=== PATIENT | male | born 1975 | race Caucasian/White ===

== ENCOUNTER → 2017-11-19 | Outpatient (CLI) | payer BC, OTHER ==
[~2017-11-19] MED LIST: LRT10T PO; PNT40TEC PO
--- NOTE | 2017-11-19 09:00 | Diagnostic Imaging Report ---
INDICATION: Right upper quadrant pain, tightness with difficulty eating. TECHNIQUE: Multiple grayscale sonographic images were obtained of the right upper quadrant of the abdomen. CORRELATION STUDY: 11/01/2012. FINDINGS: LIVER: There is uniform echotexture within the visualized portions of the liver. Liver length 14 cm. GALLBLADDER: The gallbladder demonstrates no definitive shadowing gallstones. No abnormal gallbladder wall thickening or pericholecystic fluid. COMMON BILE DUCT: Obscured by overlying bowel gas. No overt intrahepatic bile duct dilatation. PANCREAS: Obscured by overlying bowel gas. RIGHT KIDNEY: Measures 9.7 cm. No hydronephrosis. OTHER: None. IMPRESSION: 1. Limited right upper quadrant ultrasound evaluation. No definitive gallstones. The common bile duct is largely obscured as is the pancreas. Dictated by: Dictated on workstation # [id number]
== END ==
LOC: RAD 07:02
DX: R10.11 Right upper quadrant pain (principal)
CPT/HCPCS: 76705

== ENCOUNTER → 2017-11-22 | Outpatient (CLI) | payer OTHER ==
--- NOTE | 2017-11-22 15:48 | Diagnostic Imaging Report ---
INDICATION: Right-sided abdominal pain. TECHNIQUE: KUB obtained at 3:58 p.m. FINDINGS: The abdominal bowel gas pattern is unremarkable. There is no sign of obstruction or ileus. There are no suspicious calcifications. IMPRESSION: Unremarkable abdominal film. Dictated by: Dictated on workstation # [id number]
== END ==
LOC: RAD 15:20
PROVIDERS: ATTEND Nurse Practitioner Family
DX: R10.9 Unspecified abdominal pain (principal)
CPT/HCPCS: 74018

== ENCOUNTER → 2019-09-22 | Outpatient (CLI) | payer OTHER ==
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
== END ==
LOC: RAD 10:10
PROVIDERS: ATTEND Nurse Practitioner Family
DX: M54.6 Pain in thoracic spine (principal); R07.81 Pleurodynia; M54.5 Low back pain; V89.2XXA Person injured in unspecified motor-vehicle accident, traffic, initial encounter
CPT/HCPCS: 71101; 72072; 72100

== ENCOUNTER 2022-08-29 12:31 | Outpatient (CLI) | payer BC | END 2022-08-29 12:50 | LOC: SLEEP 12:31 | PROVIDERS: ATTEND Otolaryngology Otolaryngology/Facial Plastic Surgery | DX: G47.33 Obstructive sleep apnea (adult) (pediatric) (principal) | CPT/HCPCS: G0399 ==

== ENCOUNTER 2023-01-03 05:54 | Outpatient (CLI) | payer BC ==
[~2023-01-03] VITALS: Ht 182.8 cm; Wt 108.8 kg
[2023-01-03] MEDS ORDERED: CITA40TA13 PO (09:52)
[2023-01-03] MEDS ORDERED: METO50TA7 PO (09:52)
== END 2023-01-03 09:59 | disposition home or self-care (01) ==
LOC: PREOP 05:54
PROVIDERS: ATTEND Surgery
DX: Z01.818 Encounter for other preprocedural examination (principal)

== ENCOUNTER 2023-01-15 08:20 | Day surgery (SDC) | payer BC ==
[~2023-01-15] VITALS: Ht 182.9 cm; Wt 108.8 kg
[~2023-01-15 08:20] MED LIST changes: +CITA40TA13 PO; +METO50TA7 PO
[2023-01-15] MEDS ORDERED: LACTATED RINGERS 1,000 ML IV STA (08:27)
[2023-01-15] MEDS ORDERED: HURRICAINE EXT TUBE (BENZOCAINE) XX PRN (08:30)
[2023-01-15 09:11] VITALS: BP 152/91
[2023-01-15] MEDS ORDERED: PROPOFOL INJECTION 50 ML IV ONE ×2 (09:15→09:29)
--- NOTE | 2023-01-15 09:17 | Progress Note-Pre Operative ---
Pre-Operative Progress Note Date of Available H&P: Dec 26, 2022 Date H&P Reviewed: Jan 15, 2023 Time H&P Reviewed: 09:13 History & Physical: H&P Reviewed, Patient Examed, No changes noted Pre-Operative Diagnosis: Chronic Gastritis, Screening colonoscopy ANDREEA PRITCHETT DO Jan 15, 2023 09:17
[2023-01-15] MEDS ORDERED: MIDAZOLAM 2 MG/2 ML (VERSED) VIAL ONE (09:31)
--- NOTE | 2023-01-15 09:54 | Anesthesia-General Post-Op ---
MAC Patient Condition Mental Status/LOC: Same as Preop Cardiovascular: Satisfactory Nausea/Vomiting: Absent Respiratory: Satisfactory Pain: Controlled Complications: Absent Post Op Complications Complications None Follow Up Care/Instructions Patient Instructions None needed. Anesthesiology Discharge Order Discharge Order Patient is doing well, no complaints, stable vital signs, no apparent adverse anesthesia problems. No complications reported per nursing. SAMUEL MUSTAFA CRNA Jan 15, 2023 09:54
[2023-01-15 09:55] VITALS: BP 116/74
[2023-01-15 10:00] VITALS: BP 116/74
[2023-01-15 10:05] VITALS: BP 137/86
--- NOTE | 2023-01-15 10:11 | Progress Note-Post Operative ---
Post-Operative Progess Note Surgeon (s)/Labor Trainer (s) Surgeon ANDREEA PRITCHETT DO Labor Trainer: Jessica Barboza, MSIII Pre-Operative Diagnosis Chronic Gastritis, Screening colonoscopy Post-Operative Diagnosis Gastritis Hiatal hernia Gastric Polyps - multiple Colon polyp diverticula int hemorrhoids Procedure & Operative Findings Date of Procedure 01/15/23 Procedure Performed/Findings EGD with bx EGD with snare removal of polyps Colonoscopy with snare polypectomy PROCEDURE NOTE: After informed consent was obtained, the patient was brought to the endoscopy suite, placed in bed in left lateral decubitus position. He was administered IV sedation by the RECEPTIONIST/TELEPHONE OPERATOR who then monitored vitals the entire time, heart rate, blood pressure and pulse ox and the scope was inserted down the mouth through the esophagus into the stomach. On the way down, noted some mild esophagitis, took a picture, pushed into the stomach and noted some gastritis and multiple large gastric polyps; took a picture. Then pushed past the antrum into the duodenum. Duodenum looked good. Pulled back and did a biopsy of antrum, then retroflexed the scope, saw small hiatal hernia, took a picture of this and then elected to remove a few of the large gastric polyps. I used a snare with cautery to excise 4-5 polyps; they were so large I had to put the Solares net down and grab them. I then pulled the scope out to remove the polyps and pushed the scope back down into the stomach. I then removed two more polyps by grabbing them with the net and pulling the scope completely out. Finallly went back in to the GE junction, took another picture of the hiatal hernia and then did a biopsy of the GE junction. Pushed the scope back into the stomach, suctioned all the air out of the stomach. At this point pulled the scope up the esophagus and out the mouth. Switched camera, switched gloves, went down below and started the colonoscopy. Pushed all the way to about 150 cm and pushed into the cecum, took a picture of appendiceal orifice and noted the ileocecal valve. I was actually able to get into the TI and took a picture, noting the villi. Then slowly withdrew the scope insufflating to look circumferentially at the gupta starting in the cecum and up the ascending colon. Found a small polyp here that I removed with snare polypectomy. Continued up to the hepatic flexure, then down the transverse colon, splenic flexure, into the descending colon down into the sigmoid. I saw some small diverticula here and took a picture. Finally into the rectal vault and retroflexed the scope. Took a picture of the internal hemorrhoids. The patient tolerated the procedure and he recovered in the endoscopy suite. Recommended for repeat colonoscopy in 5 years Anesthesia Type IV sedation by RECEPTIONIST/TELEPHONE OPERATOR Estimated Blood Loss Estimated blood loss (mL): scant Specimens/Packing Specimens Removed Antral bx body of stomach bx GE jxn bx Gastric polyps Asc colon polyp ANDREEA PRITCHETT DO Jan 15, 2023 10:11
--- NOTE | 2023-01-15 10:13 | Endoscopy Discharge Instruct ---
Endo Procedure/Findings Findings 1.: Hiatal Hernia, Gastritis 2.: Polyp (Gastric) 3.: Polyp (Colon) 4.: Diverticulosis, Internal Hemorrhoids Discharge Instructions - Activity: You might feel a little sleepy until tomorrow. This is due to the medicine you received to relax you. Until tomorrow, you should: NOT drive a car, operate machinery or power tools. NOT drink any alcoholic beverages. NOT make any important decisions or sign importortant papers. Do not return to work until tomorrow, unless otherwise instructed. Resume previous activities tomorrow. Diet: Start by taking liquids. If you tolerate liquids, advance to solid food. 1.: EGD in 3 years 2.: Colonscopy in 5 years Notify Physician - If you experience excessive bleeding, unusual abdominal pain, fever, or chest pain, contact your doctor immediately. ANDREEA PRITCHETT DO Jan 15, 2023 10:13
[2023-01-15 10:30] VITALS: BP 148/89
== END 2023-01-15 10:40 | disposition home or self-care (01) ==
LOC: ENDO 08:20
PROVIDERS: ATTEND Surgery
DX: Z12.11 Encounter for screening for malignant neoplasm of colon (principal); D12.2 Benign neoplasm of ascending colon; K29.50 Unspecified chronic gastritis without bleeding; K44.9 Diaphragmatic hernia without obstruction or gangrene; K31.7 Polyp of stomach and duodenum; K57.30 Diverticulosis of large intestine without perforation or abscess without bleeding; K64.8 Other hemorrhoids; K20.90 Esophagitis, unspecified without bleeding; K31.89 Other diseases of stomach and duodenum; Z79.899 Other long term (current) drug therapy
CPT/HCPCS: 88305

== ENCOUNTER 2023-03-21 20:22 | Outpatient (CLI) | payer BC | END 2023-03-22 06:00 | disposition home or self-care (01) | LOC: SLEEP 20:22 | PROVIDERS: ATTEND Otolaryngology Otolaryngology/Facial Plastic Surgery | DX: G47.33 Obstructive sleep apnea (adult) (pediatric) (principal) | CPT/HCPCS: 95811 ==